=== PATIENT | male | born 1985 | race Caucasian/White ===

== ENCOUNTER 2021-08-02 14:22 | Outpatient (REF) | payer OTHER, SELFPAY | END 2021-08-02 14:23 | disposition home or self-care (01) | LOC: HO.LAB 14:22 | PROVIDERS: Visit Provider Internal Medicine | DX: Z20.822 Contact with and (suspected) exposure to COVID-19 (principal) | CPT/HCPCS: C9803; U0003; U0005 ==

== ENCOUNTER → 2022-07-14 10:20 | Outpatient (BNVA) | payer SELFPAY | PROVIDERS: Visit Provider Physician Assistant | DX: Z02.79 Encounter for issue of other medical certificate (principal) ==

== ENCOUNTER → 2024-06-16 13:00 | Outpatient (BNVA) | payer SELFPAY | PROVIDERS: Visit Provider Physician Assistant Medical | DX: Z02.83 Encounter for blood-alcohol and blood-drug test (principal) ==

== ENCOUNTER 2025-02-27 13:57 | Outpatient (AMB) | payer OTHER, SELFPAY ==
--- NOTE | 2025-02-27 14:07 | A.OFFPC_ITS ---
Vital Signs 02/27/25 14:12 Height 5 ft 6 in Weight 195 lb 4 oz BMI 31.5 BP 120/78 Blood Pressure Location Rt brachial Position Sitting Respiration 12 Pulse 74 Pulse Source Pulse Oximeter Temp 98.1 F Temp Source Oral Pulse Oximetry (%) 98 Oxygen Delivery Method Room Air Intake Visit Reasons: Est. care Intake Note: patient is scheduled to establish care Energy Risk Management Analyst Required: No Allergies No Known Allergies Allergy (Verified 02/27/25 14:10) Medication List - Last Reconciled 02/27/25 by James Camara MD No Known Home Meds Tobacco use date assessed: 02/27/25 Dental Screening Dental Screen Date: 02/27/25 Did you have a dental visit in the last 12 months?: Yes Did you have a dental problem in the last 6 months where you did not have access to dental care?: Yes Was dental information given to patient?: No HPI Est. care HPI Details New Patient? ?? Prior PCP:? No recent PCP Last office visit/CPE:? Years Acute issue(s):? Occassionally Elevated BPs Back pain ?? 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 FHx:? Dad: CAD & [place]. SocHx:? 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 ?Cigs quit 10 yrs ago. EtOH Occassionally. 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 1. Little interest or pleasure in doing things: not at all 2. Feeling down, depressed, or hopeless: not at all 3. Trouble falling or staying asleep, or sleeping too much: not at all 4. Feeling tired or having little energy: not at all 5. Poor appetite or overeating: not at all 6. Feeling bad about yourself - or that you are a failure or have let yourself or your family down: not at all 7. Trouble concentrating on things, such as reading the newspaper or watching television: not at all 8. Moving or speaking so slowly that other people could have noticed. Or the opposite - being so fidgety or restless that you have been moving around a lot more than usual: not at all 9. Thoughts that you would be better off or of hurting yourself in some way: not at all Total score: 0 Depression Screening Interpretation: Negative Depression Screening Done: Yes 71540 - PHQ-9 Billing: Yes Source: Developed by Drs. Rob Nevarez, Lorena Rowe, Keshawn Mancilla and colleagues, with an educational tonio from [employer]. Thrive Questionnaire Date Thrive assessed: 02/27/25 I am a: Patient What is your living situation today?: I have a steady place to live Within the past 12 months, did the food you bought not last and you didn't have the money to get more?: Never true Within the past 12 months, did you worry whether your food would run out before you got money to buy more?: Never true Do you have trouble paying for medicines?: No Do you have trouble getting transportation to medical appointments?: Yes Do you have trouble paying your heating and electricity bill?: No Do you have trouble taking care of your child, family member or friend?: No Do you have trouble with day-to-day activities such as bathing, preparing meals, shopping, managing finances, etc.?: No Are you currently unemployed and looking for a job?: No Are you interested in more education?: No Please select the resources that you would like help with: None Currently or been in a relationship where the following occur: I choose not to answer THRIVE Score: 1 AUDIT C Alcohol Use Questionnaire (AUDIT-C) 1. How often do you have a drink containing alcohol?: Monthly or less 2. How many drinks containing alcohol do you have on a typical day when you are drinking?: 7 to 9 3. How often do you have six or more drinks on one occasion?: Monthly Total Score: 6 Score Reviewed/Action Taken: Yes SVETLANA-7 AMB Questionnaire SVETLANA-7 Date SVETLANA - 7 assessed: 02/27/25 Feeling nervous, anxious, or on edge: 1 = Several days Not being able to stop or control worryin = Several days Worrying too much about different things: 1 = Several days Trouble relaxin = Several days Being so restless that it is hard to sit still: 1 = Several days Becoming easily annoyed or irritable: 1 = Several days Feeling afraid as if something awful might happen: 1 = Several days Total SVETLANA-7 score (0-4 normal; 5-9 mild; 10-14 moderate; 15-21 severe): 7 Source: Developed by Drs. Rob Nevarez, Lorena Rowe, Keshawn Mancilla and colleagues, with an educational tonio from [employer]. SVETLANA-7 Assessment Billing SVETLANA-7 Assessment Tool: SVETLANA-7 Assessment 09316 Review of Systems Const Denies chills, Denies fatigue, Denies fever(s), Denies headache(s) and Denies weakness Eyes Denies change in vision ENT Denies dizziness and Denies headache(s) Card Denies chest pain, Denies lightheadedness, Denies dyspnea and Denies other (Palpitations) Resp Denies cough, Denies dyspnea, Denies wheezing and Denies other ( shortness of breath) GI Denies abdominal pain, Denies melena, Denies hematochezia, Denies change in bowel habits, Denies dyspepsia and Denies nausea Denies hematuria and Denies dysuria Musc Denies numbness and Denies tingling Skin/Breast Denies rash, Denies unusual bruising and Denies wounds Neuro Denies dizziness, Denies headache(s), Denies numbness, Denies Sensory deficit (Neuro), Denies tingling, Denies paresthesias and Denies weakness Psych Denies anxiety and Denies depression Endo Denies fatigue Brendon/Lymph Denies easy bleeding and Denies easy bruising Aller/Immun Denies wheezing Physical exam (Primary Care) Vital Signs: Last Vital Signs Temp 98.1 F 02/27/25 14:12 Pulse 74 02/27/25 14:12 Resp 12 02/27/25 14:12 BP 120/78 02/27/25 14:12 Pulse Ox 98 02/27/25 14:12 Oxygen Delivery Method Room Air 02/27/25 14:12 BMI result Body Mass Index 31.5 Tobacco/Smoking Status: Tobacco use Status Tobacco use date assessed 02/27/25 02/27/25 14:14 Patient Tobacco Use Status Former Tobacco user 02/27/25 14:14 e-Cigarette/Vaping Use Never Used 02/27/25 14:14 PHQ-9: PHQ-9 Score PHQ-9: Total score 0 02/27/25 14:14 Depression Screening Interpretation: Negative Thrive Assessment: Date of Thrive Assessment Date Thrive assessed 02/27/25 02/27/25 14:09 Currently or been in a relationship where the following occur: I choose not to answer Const General: no acute distress and well developed Nutritional Appearance: well nourished Orientation/consciousness: patient oriented x3 HENMT Head: Yes normocephalic and Yes atraumatic Ears: hearing grossly normal bilaterally and TM's normal bilaterally General nose exam: Normal external nose present and Normal nares present Mouth: Normal oral and palatal mucosa present and moist mucous membranes Teeth and gingiva: dentition normal Throat: Yes posterior oropharynx normal Eyes General: appearance normal, both eyes and all related structures Pupils: Equal, round and reactive pupils present EOM: EOMs intact bilaterally Neck Neck: Yes normal visual inspection, Yes no lymphadenopathy and Yes trachea m idline Thyroid: Thyroid normal Carotids: no bruits Lymphatic: no lymphadenopathy noted Chest Chest palpation & inspection: normal inspection of the chest Resp Effort & Inspection: normal respiratory effort Auscultation: clear to auscultation bilaterally Cardio Rate: regular rate Rhythm: regular rhythm Heart sounds: S1 normal heart sound present, S2 normal heart sound present, no gallops, no murmurs and no rubs Bruits: no abdominal aortic bruits and no carotid bruits GI Palpation (GI): No Abdominal aortic bruit present, Soft to palpation, nontender, No hepatosplenomegaly present and No Rebound tenderness present Auscultation: normal bowel sounds General: Yes no CVA tenderness Back/Spine/Pelvis Back: no CVA tenderness Cervical Spine: cervical ROM normal and No Cervical spine tenderness Thoracic/Lumbar Spine: thoraco-lumbar ROM normal, No pain with thoraco-lumbar ROM, No thoracic spinal tenderness and No lumbar spinal tenderness Skin Lesions: no lesions Rashes: no rashes Trauma: no lacerations or abrasions Wounds: no wounds Nails: normal Neuro General: patient oriented x3 and gait normal Cranial nerves: Yes Equal, round and reactive pupils present Cognition (Neuro): normal cognition Gait exam (Neuro): Normal gait present Motor exam (neuro): 5/5 motor strength present throughout Sensory Exam: No Sensory deficit (Neuro) Deep tendon reflexes (DTR's): Right patellar reflex intensity grade: 2+ and Left patellar reflex intensity grade: 2+ Extrem General: Yes normal to inspection and No edema Psych Appearance: grossly normal Affect: normal affect Attitude: cooperative Thought process: Normal thought process present Coding Level of Care Code New Pt Level 3 (89246) New Pt Prev Care 18-39yr(70272 Diagnoses Adult general medical exam Z00.00 Back pain M54.9 IgA nephropathy N02.B9 Family history of coronary artery disease Z82.49 Elevated blood pressure reading R03.0 Additional Codes SVETLANA-7 Assessment Billing - SVETLANA-7 Assessment Tool: SVETLANA-7 Assessment [id number] ([id number]) PHQ-9 - 32127 - PHQ-9 Billing: Yes ([id number]) Assessment & Plan Assessment & Plan (1) Adult general medical exam: Code(s): Z00.00 - Encounter for general adult medical examination without abnormal findings Category: Medical Plan: 39-year-old?male?presents?as?new?patient?for?CPE Encouraged?healthy?diet?with?active?lifestyle?and?plenty?of?exercise (2) Back pain: Code(s): M54.9 - Dorsalgia, unspecified Category: Medical Plan: Intermittent?back?pain 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 No?pain?in?office?today Increase?core?muscle?strength?and?that?muscle?strength.??Encouraged?exercise He?will?let?me?know?if?he?has?flare?up (3) IgA nephropathy: Code(s): N02.B9 - Other recurrent and persistent immunoglobulin A nephropathy Category: Medical Plan: History?of?IgA?nephropathy He?says?he?had?been?on?lisinopril?in?the?past?and?restarting?him?on?this?as?he?a lso?says?gets?elevated?blood?pressures?at?home Checking?24?urine?protein (4) Family history of coronary artery disease: Code(s): Z82.49 - Family history of ischemic heart disease and other diseases of the circulatory system Category: Medical Plan: He?also?notes?that?he?has?elevated?blood?pressure-see?below EKG: ?Normal?sinus?rhythm,?normal?axis,?normal?interval s,?no?hypertrophy,?no?ST-T-wave?changes Will?monitor?risk?factors (5) Elevated blood pressure reading: Code(s): R03.0 - Elevated blood-pressure reading, without diagnosis of hypertension Category: Medical Plan: Patient?notes?that?his?blood?pressu res?get?rather?high?at?home?with?systolic?blood?pressures?to?160s Starting?him?on?lisinopril Watch?salt/sodium Encouraged?exercise Will?monitor Orders: Orders Comprehensive [place]. Panel Fast Today Z00.00 - Encounter for general adult medical examination without abnormal findings Lipid Panel Today Z00.00 - Encounter for general adult medical examination without abnormal findings Microalbumin, Random (w Creat) Today I10 - Essential (primary) hypertension UA CC w/rflx Micro + Cult Today Z00.00 - Encounter for general adult medical examination without abnormal findings AMB EKG-In Office Today R03.0 - Elevated blood-pressure reading, without diagnosis of hypertension, Z82.49 - Family history of ischemic heart disease and other diseases of the circulatory system Protein, 24 Hr Urine Group Today N02.B9 - Other recurrent and persistent immunoglobulin A nephropathy TSH reflex Free T4 Today Z00.00 - Encounter for general adult medical examination without abnormal findings Prostate Specific Antigen Scr Today Z12.5 - Encounter for screening for malignant neoplasm of prostate Medications: New lisinopril 5 mg PO DAILY 90 days 90 tabs 3RF
[2025-02-27 14:12] VITALS: BP 120/78; PULSE 74; RESP 12; TEMP 36.7; O2SAT 98; BMI 31.5
== END 2025-02-27 14:56 | disposition home or self-care (01) ==
LOC: HO.HMCFM 13:58
PROVIDERS: PCP Family Medicine; Visit Provider Family Medicine
DX: Z00.00 Encounter for general adult medical examination without abnormal findings (principal); M54.9 Dorsalgia, unspecified; N02.B9 Other recurrent and persistent immunoglobulin A nephropathy; Z82.49 Family history of ischemic heart disease and other diseases of the circulatory system; R03.0 Elevated blood-pressure reading, without diagnosis of hypertension

== ENCOUNTER → 2025-02-27 13:57 | Outpatient (BNVA) | payer OTHER, SELFPAY | PROVIDERS: PCP Family Medicine; Visit Provider Family Medicine | DX: Z00.00 Encounter for general adult medical examination without abnormal findings (principal); M54.9 Dorsalgia, unspecified; N02.B9 Other recurrent and persistent immunoglobulin A nephropathy; R03.0 Elevated blood-pressure reading, without diagnosis of hypertension; Z82.49 Family history of ischemic heart disease and other diseases of the circulatory system | CPT/HCPCS: 96127; 99202; 99385 ==

== ENCOUNTER 2025-07-28 09:31 | Outpatient (REF) | payer OTHER, SELFPAY ==
[2025-07-28 12:26] LABS: Alanine Aminotransferase 25 U/L (0-40); Albumin Level 4.5 g/dL (3.5-5.0); Alkaline Phosphatase 48 U/L (39-117); Anion Gap 10 (12-20); Aspartate Amino Transferase 36 U/L (5-37); Blood Urea Nitrogen 12 mg/dL (9-16); Calcium 9.1 mg/dL (8.4-10.2); Carbon Dioxide 29 mmol/L (22-29); Chloride 104 mmol/L (96-108); Cholesterol 189 mg/dL (<200); Estimated Glomerular Filt Rate > 60; HDL Cholesterol 56 mg/dL (>40); Potassium 3.7 mmol/L (3.3-5.1); Sodium 139 mmol/L (135-145); Total Protein 7.3 g/dL (6.5-8.0); Triglycerides 126 mg/dL (<150)
[2025-07-28 14:55] LABS: Appearance Urine Turbid; Glucose Urine UA Negative (Negative); PH 7.5 (5.0-9.0); Specific Gravity - Urine 1.015 (1.005-1.025); UMIC TRIGGER UACC YES
[2025-07-28 15:38] LABS: Microalbum/Creatinine Ratio Ur 37.8 ug/mg cr (<30)
== END 2025-07-28 09:32 | disposition home or self-care (01) ==
LOC: HO.WFDLDS 09:31
PROVIDERS: Visit Provider Family Medicine
DX: Z00.00 Encounter for general adult medical examination without abnormal findings (principal); I10 Essential (primary) hypertension
CPT/HCPCS: 36415; 80053; 80061; 81001; 82043; 82570; 84153; 84443

== ENCOUNTER 2025-07-29 11:30 | Outpatient (AMB) | payer OTHER, SELFPAY ==
--- NOTE | 2025-07-29 11:35 | MHC.PC.OV ---
Vital Signs 07/29/25 11:39 Height 5 ft 6 in Weight 197 lb 6 oz BMI 31.9 BP 138/88 Blood Pressure Location Rt brachial Position Sitting Respiration 16 Pulse 69 Pulse Source Pulse Oximeter Temp 98.3 F Temp Source Oral Pulse Oximetry (%) 96 Oxygen Delivery Method Room Air Intake Visit Reasons: f/u elev. BP reading, labs in office Intake Note: patient here for follow up on BP and labs review Tack Cleaner Required: No Allergies No Known Allergies Allergy (Verified 07/29/25 11:37) Medication List - Last Reconciled 07/29/25 by James Camara MD lisinopril 10 mg PO DAILY 90 days Tobacco use date assessed: 07/29/25 Dental Screening Dental Screen Date: 07/29/25 Did you have a dental visit in the last 12 months?: No Did you have a dental problem in the last 6 months where you did not have access to dental care?: No Was dental information given to patient?: Patient has dentist HPI f/u elev. BP reading, labs in office HPI Details 40 y/o male presents to f/u elevated BP, lab work. Hx of IgA nephropathy. Had started him on lisinopril 5mg last office visit. He is tolerating this well. BP today 138/88, 69p. Labs drawn 07/28/25. Reviewed labs with pt. Triglycerides 126. TC 189. LDL 108. HDL 56. PSA 0.77. Moderate blood in urine. Hx of some protein in urine. 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 Current occupational exposures/hazards: No Cognitive needs: No Hearing needs: No Vision needs: No Questionnaire Thrive Questionnaire Date Thrive assessed: 02/27/25 I am a: Patient What is your living situation today?: I have a steady place to live Within the past 12 months, did the food you bought not last and you didn't have the money to get more?: Never true Within the past 12 months, did you worry whether your food would run out before you got money to buy more?: Never true Do you have trouble paying for medicines?: No Do you have trouble getting transportation to medical appointments?: Yes Do you have trouble paying your heating and electricity bill?: No Do you have trouble taking care of your child, family member or friend?: No Do you have trouble with day-to-day activities such as bathing, preparing meals, shopping, managing finances, etc.?: No Are you currently unemployed and looking for a job?: No Are you interested in more education?: No Please select the resources that you would like help with: None Currently or been in a relationship where the following occur: I choose not to answer THRIVE Score: 1 SVETLANA-7 AMB Questionnaire SVETLANA-7 Date SVETLANA - 7 assessed: 02/27/25 Source: Developed by Drs. Rob Nevarez, Lorena Rowe, Keshawn Mancilla and colleagues, with an educational tonio from [employer]. Review of Systems Const Denies chills, Denies fatigue, Denies fever(s), Denies headache(s) and Denies weakness ENT Denies dizziness and Denies headache(s) Card Denies dyspnea Resp Denies cough, Denies dyspnea, Denies wheezing and Denies other (shortness of breath) Musc Denies numbness and Denies tingling Neuro Denies dizziness, Denies headache(s), Denies numbness, Denies tingling and Denies weakness Psych Denies anxiety and Denies depression Endo Denies fatigue Aller/Immun Denies wheezing Physical exam (Primary Care) Vital Signs: Last Vital Signs Temp 98.3 F 07/29/25 11:39 Pulse 69 07/29/25 11:39 Resp 16 07/29/25 11:39 BP 138/88 07/29/25 11:39 Pulse Ox 96 07/29/25 11:39 Oxygen Delivery Method Room Air 07/29/25 11:39 BMI result Body Mass Index 31.9 Tobacco/Smoking Status: Tobacco use Status Tobacco use date assessed 07/29/25 07/29/25 11:40 Patient Tobacco Use Status Former Tobacco user 07/29/25 11:35 e-Cigarette/Vaping Use Never Used 07/29/25 11:35 Thrive Assessment: Date of Thrive Assessment Date Thrive assessed 02/27/25 07/29/25 11:35 Currently or been in a relationship where the following occur: I choose not to answer Const General: well developed; No acute distress Nutritional Appearance: well nourished Orientation/consciousness: patient oriented x3 [facility] Head: Yes normocephalic and Yes atraumatic Eyes General: appearance normal, both eyes and all related structures Pupils: Equal, round and reactive pupils present EOM: EOMs intact bilaterally Resp Effort & Inspection: normal respiratory effort Neuro General: patient oriented x3 and gait normal Cranial nerves: Yes Equal, round and reactive pupils present Psych Affect: normal affect Coding Level of Care Code Est Pt Level 4 (46617) Diagnoses Hypertension I10 IgA nephropathy N02.B9 Hematuria R31.9 Proteinuria R80.9 Elevated LDL cholesterol level E78.00 Assessment & Plan Assessment & Plan (1) Hypertension: Code(s): I10 - Essential (primary) hypertension Category: Medical Plan: Blood pressure is above goal of less than 130/80 Increasing lisinopril from 5 mg daily to 10 mg daily (2) IgA nephropathy: Code(s): N02.B9 - Other recurrent and persistent immunoglobulin A nephropathy Category: Medical (3) Hematuria: Code(s): R31.9 - Hematuria, unspecified Category: Medical (4) Proteinuria: Code(s): R80.9 - Proteinuria, unspecified Category: Medical (5) Elevated LDL cholesterol level: Code(s): E78.00 - Pure hypercholesterolemia, unspecified Category: Medical Plan History of IgA nephropathy and lab work is consistent with this Encouraged him to work at good blood pressure control, blood sugar control and lipid control. He is on lisinopril Avoid NSAIDs Will continue to monitor Orders: Orders Microalbumin, Random (w Creat) Today I10 - Essential (primary) hypertension, N02.B9 - Other recurrent and persistent immunoglobulin A nephropathy UA CC w/rflx Micro + Cult Today N02.B9 - Other recurrent and persistent immunoglobulin A nephropathy, Z00.00 - Encounter for general adult medical examination without abnormal findings Total Protein Urine Random 2 Months N02.B9 - Other recurrent and persistent immunoglobulin A nephropathy Comprehensive [place]. Panel Fast Today N02.B9 - Other recurrent and persistent immunoglobulin A nephropathy, Z00.00 - Encounter for general adult medical examination without abnormal findings Medications: Changed From lisinopril 5 mg PO DAILY 90 days 90 tabs 3RF To lisinopril 10 mg PO DAILY 90 tabs 3RF 90 days
[2025-07-29 11:39] VITALS: BP 138/88; PULSE 69; RESP 16; TEMP 36.8; O2SAT 96; BMI 31.9
== END 2025-07-29 12:07 | disposition home or self-care (01) ==
LOC: HO.HMCFM 11:31
PROVIDERS: PCP Family Medicine; Visit Provider Family Medicine
DX: I10 Essential (primary) hypertension (principal); N02.B9 Other recurrent and persistent immunoglobulin A nephropathy; R31.9 Hematuria, unspecified; R80.9 Proteinuria, unspecified; E78.00 Pure hypercholesterolemia, unspecified

== ENCOUNTER → 2025-07-29 11:30 | Outpatient (BNVA) | payer OTHER, SELFPAY | PROVIDERS: PCP Family Medicine; Visit Provider Family Medicine | DX: I10 Essential (primary) hypertension (principal); N02.B9 Other recurrent and persistent immunoglobulin A nephropathy; R80.9 Proteinuria, unspecified; E78.00 Pure hypercholesterolemia, unspecified | CPT/HCPCS: 99212 ==